=== PATIENT | male | born 1935 | race Caucasian/White ===

== ENCOUNTER 2018-05-29 18:49 | Inpatient (IN) | payer SELFPAY ==
[~2018-05-29] VITALS: Ht 167.6 cm; Wt 76.7 kg
[2018-05-29 20:00] VITALS: BP 133/71
--- NOTE | 2018-05-29 20:00 | NUR ---
RECEIVE PT IN BED A&O X 2, RE ADMIITNG PT TO MED SURG. RESPIRATIONS EVEN AND UNLABORED. TOLERATING ROOM AIR 99%. STABLE CONDITION. NO DT'S. HEAD TO TOE ASSESSMENT IS DONE SKIN IS INTACT. KEPT CLEAN AND DRY AND COMFORTABLE. WILL CONTINUE TO MONITOR CHANGES
--- NOTE | 2018-05-29 21:45 | NUR ---
PAGED AND SPOKE TO DR. SAMUEL MONTAÑO RELAYED PT GIVING FALSE INFORMATION GIVING INCORRECT NAME AND . ADMITTING ORDERS FROM OLD ACCOUNT CANNOT BE RETRIEVED ELECTRONICALLY CONTACTED ER ADMITTING, STATED THEIR BIOFUELS RESEARCH SCIENTIST MADE AWARE OF THE INCIDENT, AND WILL PROCESS BY FRIDAY. PER DR. BAKER ORDERED MANUALLY ENTER HIS OLD ORDERS TO THE NEW ACCOUNT, INCLUDING MEDICATIONS.
[2018-05-29] MEDS ORDERED: MAGNESIUM HYDROXIDE 30 ML UDC PO PRN (23:00)
[2018-05-29] MEDS ORDERED: ZOLPIDEM TARTRATE 5 MG TABLET PO PRN (23:00)
[2018-05-29] MEDS ORDERED: ACETAMINOPHEN 325 MG TABLET PO PRN (23:00)
[2018-05-29] MEDS ORDERED: HYDROCODONE/APAP 5/325MG 1 EACH TABLET PO PRN (23:00)
[2018-05-29] MEDS ORDERED: Z GUARD REMEDY 4 OZ OINT TP PRN (23:00)
[2018-05-29] MEDS ORDERED: MAG HYDROX/AL HYDROX/SIMETH 30 ML UDC PO PRN (23:00)
[2018-05-29] MEDS ORDERED: ONDANSETRON HCL/PF 4 MG/2 ML VIAL IV PRN (23:00)
[2018-05-30] MEDS ORDERED: LEVOFLOXACIN 750 MG /D5W 150ML 750 MG in PREMIX 1 EA IV ONE (03:00)
[2018-05-30] MEDS ORDERED: LEVOFLOXACIN 750 MG /D5W 150ML 150 ML IV ONE (03:24)
--- NOTE | 2018-05-30 06:13 | NUR ---
RN CLOSING NOTE PT IN BED ASLEEP AND EASILY AWAKEN. TOLERATING ROOM AIR NOW AT 95%. AM CARE PROVIDED. STABLE CONDITION AND NOT IN DISTRESS. RESPIRATIONS EVEN AND UNLABORED. NURSING CARE RENDERED. ALL PT NEEDS ANTICIPATED AND MET. SAFETY MEASURES IN PLACE, KEPT CLEAN AND DRY AND COMFORT, CALL LIGHT WITHIN REACH. WILL ENDORSE TO HAM CLERK FOR DARON
[2018-05-30 07:21] LABS: CALCIUM, SERUM 7.9 mg/dL (8.5-10.1); CARBON DIOXIDE 28 mmol/L (21-32); CHLORIDE 103 mmol/L (98-107); CREATININE 0.5 mg/dL (0.6-1.3); GLUCOSE 99 mg/dL (74-106); MAGNESIUM 1.6 mg/dL (1.8-2.4); PHOSPHORUS 7.9 mg/dL (2.5-4.9); POTASSIUM 3.5 mmol/L (3.5-5.1); SODIUM SERUM 138 mmol/L (136-145); UREA NITROGEN, BLOOD 12 mg/dL (7-18)
--- NOTE | 2018-05-30 07:22 | NUR ---
MS RN OPENING NOTES RECEIVED PT AWAKE, CALMED AND RESTING IN BED. A/O X2. TURKISH SPEAKING, DENIES ANY PAIN OR DISCOMFORTS AT THIS TIME. ON ROOM AIR, BREATHING EVEN AND UNLABORED. IV ACCESS ON LAC INTACT AND PATENT, FLUSHES WELL. SAFETY MEASURES IN PLACE, BED IN LOW LOCKED POSITION WITH SR UP X2. CALL LIGHT IN REACH. WILL CONTINUE TO MONITOR PT ACCORDINGLY.
[2018-05-30 07:23] LABS: BASOPHILS % (AUTO) 1.1 % (0.0-2.0); EOSINOPHILS % (AUTO) 6.3 % (0.0-6.0); HEMATOCRIT 28 % (39-51); HEMOGLOBIN 8.4 g/dL (13.5-17.5); LYMPHOCYTES # (AUTO) 0.8 /CMM (0.8-4.8); LYMPHOCYTES % (AUTO) 26.6 % (20.0-44.0); MEAN CORPUSCULAR HGB CONC 30 g/dl (31.0-36.0); MEAN CORPUSCULAR VOLUME 65 fL (80-96); MONOCYTES # (AUTO) 0.4 /CMM (0.1-1.30); MONOCYTES % (AUTO) 12.8 % (2.0-12.0); NEUTROPHILS # (AUTO) 1.6 /CMM (1.8-8.9); NEUTROPHILS % (AUTO) 53.2 % (43.0-81.0); PLATELET COUNT (AUTO) 171 /CMM (150-450); RED BLOOD CELL COUNT(AUTO) 4.29 MIL/uL (4.5-6.0)
[2018-05-30 07:29] LABS: CHOLESTEROL 119 mg/dL (<200); HDL CHOLESTEROL 45 mg/dL (40-60); LDL 71 mg/dL (0-99); THYROID STIMULATING HORMONE 5.557 uIU/mL (0.358-3.74); TRIGLYCERIDES 28 mg/dL (30-150)
[2018-05-30] MEDS ORDERED: PANTOPRAZOLE 40 MG TABLET.DR PO SCH (07:30)
[2018-05-30 08:00] VITALS: BP 154/80
[2018-05-30] MEDS ORDERED: THIAMINE HCL 100 MG TABLET PO SCH (09:00)
[2018-05-30] MEDS ORDERED: FOLIC ACID 1 MG TABLET PO SCH (09:00)
[2018-05-30] MEDS: Magnesium 1GM/D5W 100ML PREMIX 100 ML IV SCH ×2 (10:24→11:32)
--- NOTE | 2018-05-30 10:54 | NUR ---
RN NOTES PATIENT SEEN AND EVALUATED BY DR HERNANDEZ AND STATED THAT IT'S OK IF PT DOESN'T WANT TO HAVE THE IVF BECAUSE PT IS DRINKING WELL. WILL CONTINUE TO MONITOR Addendum: 05/30/18 at 1227 by STEPHANIE CURRY RN CORRECTION: WRONG PROGRESS NOTES. nOTES IS FOR ANOTHER PT.
--- NOTE | 2018-05-30 12:26 | NUR ---
RN NOTES PT NOTED TODAY WITH LOW MG 1.6, REPLACED WITH 2GMS IV. WILL CONTINUE TO MONITOR
--- NOTE | 2018-05-30 15:34 | NUR ---
RN NOTES PATIENT SEEN AND EVALUATED BY DIABETES EDUCATION COORDINATOR SHRUTI SIMMONS WITH ORDER TO DISCHARGE PT HOME TODAY. CALLED PT'S DAUGHTER HAYLEE GOMEZ AND SAID THAT SHE WILL COME @ 1800 TO TAKE PT'S HOME.
[2018-05-30 16:00] VITALS: BP 149/86
--- NOTE | 2018-05-30 18:34 | NUR ---
RN NOTES PT'S DAUGHTER LETICIA GOMEZ CAME AND STATED THAT SHE COULDN'T TAKE PT HOME AND ASKED FOR PT SNF PLACEMEN. KENN BYRD CALLED AND CAME TO UNIT, SPOKE TO PT AND PT'S DAUGHTER REGARDING INSURANCE AND PLACEMENTS POLICIES. DAUGHTER AT THE END DECIDED TO TAKE PT HOME.
--- NOTE | 2018-05-30 18:38 | NUR ---
NEONATAL INTENSIVE CARE UNIT NURSE NOTES PATIENT DISCHARGED HOME IN STABLE CONDITION. A/O X3. CYMRO SPEAKING AND COMPLIANT WITH CARE. V/S TAKEN AND RECORDED. SKIN IS INTACT. IV ACCESS ON LAC REMOVED WITH NO BLEEDING NOTED. BELONGINGS CHECKED, COUNTED AND SIGNED FORM. HEALTH TEACHINGS GIVEN TO PT AND PT'S DAUGHTER VIA CYMRO PREVENTION RN, BOTH VERBALIZED UNDERSTANDING. PRESCRIPTION HANDED TO DAUGHTER LETICIA GOMEZ. PT LEFT UNIT AT 1830 VIA WHEELCHAIR IN NO ACUTE SIGNS OF DISTRESS ACCOMPANIED BY DAUGHTER LETICIA. CHARGE NURSE AWARE OF PT'S DISCHARGE..
[2018-05-31] MEDS ORDERED: LEVOFLOXACIN 750 MG /D5W 150ML 750 MG in PREMIX 1 EA IV SCH (04:00)
== END 2018-05-30 18:23 | disposition home or self-care (01) | DRG 178 ==
LOC: MED 18:49
PROVIDERS: ADMIT Nurse Practitioner Acute Care; ATTEND Nurse Practitioner Acute Care
DX: J69.0 Pneumonitis due to inhalation of food and vomit (principal); E46 Unspecified protein-calorie malnutrition; D50.9 Iron deficiency anemia, unspecified; D72.819 Decreased white blood cell count, unspecified; E66.9 Obesity, unspecified; E83.51 Hypocalcemia; E87.6 Hypokalemia; M19.90 Unspecified osteoarthritis, unspecified site; Z91.81 History of falling; F10.129 Alcohol abuse with intoxication, unspecified; Y90.8 Blood alcohol level of 240 mg/100 ml or more; M17.0 Bilateral primary osteoarthritis of knee; Z68.27 Body mass index [BMI] 27.0-27.9, adult; Z59.0 Homelessness
CPT/HCPCS: 36415; 70450-TC; 71045-TC; 72125-TC; 73564-TC; 80048-TC; 80061-TC; 80076-TC; 80305; 81000-TC; 83735-TC; 83880; 84100-TC; 84443-TC; 84484-TC; 85025-TC; 85610-TC; 87040-TC; 87081-TC; 87400; 95819-TC; A4216; G0378; G0480; J0456; J0696; J1956; J3475; J7042; J7060

== ENCOUNTER 2018-10-26 20:22 | Inpatient (IN) | payer SELFPAY ==
[~2018-10-26] VITALS: Ht 165.1 cm; Wt 79.8 kg
--- NOTE | 2018-10-26 20:44 | NUR ---
BIBRA[address] FROM [address] RECENTLY SEEN AND DISCHARGED FROM [facility] FOR ETOH BS 90. REC'D 200ML NS EN ROUTE. LIMITED RESPONSE FROM PT, ONLY GIVING YES/NO GESTURES. NO ACUTE DISTRESS NOTED. READY FOR EVAL AND WILL CONT TO OBSERVE
[2018-10-26 20:48] LABS: BASOPHILS % (AUTO) 0.5 % (0.0-2.0); EOSINOPHILS % (AUTO) 0.8 % (0.0-6.0); HEMATOCRIT 39 % (39-51); LYMPHOCYTES # (AUTO) 0.8 /CMM (0.8-4.8); LYMPHOCYTES % (AUTO) 9.3 % (20.0-44.0); MEAN CORPUSCULAR HGB CONC 33 g/dl (31.0-36.0); MEAN CORPUSCULAR VOLUME 82 fL (80-96); MONOCYTES # (AUTO) 0.3 /CMM (0.1-1.30); MONOCYTES % (AUTO) 3.3 % (2.0-12.0); NEUTROPHILS # (AUTO) 7.2 /CMM (1.8-8.9); NEUTROPHILS % (AUTO) 86.1 % (43.0-81.0); PLATELET COUNT (AUTO) 228 /CMM (150-450); RED BLOOD CELL COUNT(AUTO) 4.77 MIL/uL (4.5-6.0); WHITE BLOOD COUNT (AUTO) 8.4 K/uL (4.3-11.0)
[2018-10-26 21:13] LABS: ALANINE AMINOTRANSFERASE 19 U/L (12-78); ALBUMIN 3.8 g/dL (3.4-5.0); ALCOHOL, BLOOD 143 mg/dL (0-0); ALKALINE PHOSPHATASE 92 U/L (46-116); ASPARTATE AMINOTRANSFERASE 32 U/L (15-37); BILIRUBIN,DIRECT 0.2 mg/dL (0.0-0.2); BILIRUBIN,TOTAL 0.6 mg/dL (0.2-1.0); CALCIUM, SERUM 8.2 mg/dL (8.5-10.1); CARBON DIOXIDE 19 mmol/L (21-32); CHLORIDE 108 mmol/L (98-107); CREATININE 0.7 mg/dL (0.6-1.3); GLUCOSE 112 mg/dL (74-106); SODIUM SERUM 147 mmol/L (136-145); TOTAL PROTEIN, SERUM 8.1 g/dL (6.4-8.2); UREA NITROGEN, BLOOD 20 mg/dL (7-18)
[2018-10-26 21:17] LABS: ACETAMINOPHEN < 10 ug/ml (10-30); POTASSIUM 2.8 mmol/L (3.5-5.1); SALICYLATE 1.2 mg/dL (2.8-20.0)
[2018-10-26] MEDS ORDERED: POTASSIUM CL. PREMIX PERIPHER. 100 ML ONE (21:55)
[2018-10-26] MEDS: POTASSIUM CL. PREMIX PERIPHER. 50 ML IV SCH ×2 (22:30→23:25)
--- NOTE | 2018-10-26 22:40 | NUR ---
Patient is resting comfortably in bed with eyes closed. Easily aroused. VSS. REQUESTING WATER. NOTIFIED
--- NOTE | 2018-10-26 23:32 | NUR ---
2ND BAG POTASSIUM INFUSING. PT ELICEO WELL.
--- NOTE | 2018-10-27 00:20 | NUR ---
Pt continues to sleep w/ resp even & unlabored, IV potassium continues to be infusing w/ no infiltration, phlebitis at IV insertion site noted. pt on continuous pulse-ox w/ cardiac monitoring.
[2018-10-27] MEDS ORDERED: POTASSIUM CL. PREMIX PERIPHER. 50 ML ONE ×2 (00:38→03:31)
--- NOTE | 2018-10-27 03:21 | NUR ---
Pt awake, requesting water, given flds, sitting up in bed drinking w/ no aspiration of flds noted. pt then goes back to sleep, on continuous pulse-ox w/ cardiac monitoring.
[2018-10-27] MEDS ORDERED: POTASSIUM CHLORIDE 10 MEQ/50 ML PREMIXED IVPB FOR PERIPHERAL LINE IV ONE (03:30)
[2018-10-27] MEDS ORDERED: ONDANSETRON HCL/PF 4 MG/2 ML VIAL ONE (03:30)
[2018-10-27] MEDS ORDERED: IV NS 0.9% 1,000 ML BAG IV ONE (03:30)
[2018-10-27] MEDS ORDERED: ONDANSETRON HCL/PF - ER 4 MG/2 ML VIAL IV ONE (03:30)
[2018-10-27] MEDS ORDERED: Magnesium 1GM/D5W 100ML PREMIX 200 ML IV ONE (03:31)
--- NOTE | 2018-10-27 03:40 | NUR ---
pt actively vomiting coffee ground emesis w/ no aspiration of gastric content noted. Dr. Robbins notified.
--- NOTE | 2018-10-27 03:46 | NUR ---
pt medicated as ordered for N/V, w/ IVPB Mg, labs drawn & sent. Urinal provided, urine obtained & sent to lab. pt on continuous O2 w/ cardiac monitoring.
[2018-10-27 03:57] LABS: APPEARANCE,URINE CLEAR (CLEAR); BILIRUBIN,URINE NEGATIVE (NEGATIVE); BLOOD, URINE 1+ Ery/uL (NEGATIVE); COLOR,URINE YELLOW (YELLOW); KETONES,URINE 1+ (NEGATIVE); LEUKOCYTE ESTERASE ,URINE NEGATIVE (NEGATIVE); NITRITE, URINE NEGATIVE (NEGATIVE); PH,URINE 5.5 (5.0-8.0); PROTEIN,URINE 1+ mg/dl (NEGATIVE); UGLUCOSE NEGATIVE (NEGATIVE)
[2018-10-27] MEDS: Magnesium 1GM/D5W 100ML PREMIX 100 ML IV SCH ×2 (03:58→04:15)
[2018-10-27 04:12] LABS: BACTERIA,URINE Rare /HPF (None Seen); SQUAMOUS EPITHELIAL CELL,UR Rare /HPF (None Seen); WBC,URINE 0-2 /HPF (0-3)
[2018-10-27] MEDS ORDERED: CEFTRIAXONE 1GM BAG (ER ONLY) 50 ML IV ONE (04:14)
[2018-10-27] MEDS ORDERED: POTASSIUM CL. PREMIX PERIPHER. 100 ML ONE (04:15)
[2018-10-27] MEDS ORDERED: PANTOPRAZOLE 40 MG VIAL ONE (04:15)
[2018-10-27] MEDS ORDERED: OCTREOTIDE 1,250 MCG in IV NS 0.9% 250 ML IV ONE (04:30)
[2018-10-27] MEDS ORDERED: PANTOPRAZOLE 80 MG in IV NS 0.9% 100 ML IV ONE (04:30)
[2018-10-27] MEDS ORDERED: CEFTRIAXONE 1GM BAG (ER ONLY) 1 GM/50 ML PIGGYBACK IV ONE (04:30)
[2018-10-27] MEDS ORDERED: OCTREOTIDE 50 MCG/ML AMPUL IV ONE (04:30)
[2018-10-27 04:37] LABS: BASOPHILS % (AUTO) 0.4 % (0.0-2.0); LYMPHOCYTES # (AUTO) 0.9 /CMM (0.8-4.8); PLATELET COUNT (AUTO) 212 /CMM (150-450)
[2018-10-27 04:40] LABS: EOSINOPHILS % (AUTO) 0.2 % (0.0-6.0); HEMATOCRIT 39 % (39-51); HEMOGLOBIN 12.9 g/dL (13.5-17.5); LYMPHOCYTES % (AUTO) 12.6 % (20.0-44.0); MEAN CORPUSCULAR HGB CONC 34 g/dl (31.0-36.0); MEAN CORPUSCULAR VOLUME 82 fL (80-96); MONOCYTES # (AUTO) 0.4 /CMM (0.1-1.30); MONOCYTES % (AUTO) 4.8 % (2.0-12.0); RED BLOOD CELL COUNT(AUTO) 4.67 MIL/uL (4.5-6.0); WHITE BLOOD COUNT (AUTO) 7.4 K/uL (4.3-11.0)
[2018-10-27] MEDS ORDERED: OCTREOTIDE 100 MCG/ML VIAL ONE (04:56)
[2018-10-27] MEDS ORDERED: OCTREOTIDE 500 MCG/ML VIAL ONE (04:56)
--- NOTE | 2018-10-27 05:21 | NUR ---
Report given to SARAH Layton for pt admission to [facility] 307-2 for DARON. pt lying on rt side, w/ resp even & unlabored, on continuous monitoring.
[2018-10-27] MEDS ORDERED: PHARMACY ADD 1 AMP MVI TO IVF DAILY ONE BAG XX PRN (05:30)
[2018-10-27] MEDS ORDERED: MAGNESIUM HYDROXIDE 30 ML UDC PO PRN (05:30)
[2018-10-27] MEDS ORDERED: MAG HYDROX/AL HYDROX/SIMETH 30 ML UDC PO PRN (05:30)
[2018-10-27] MEDS ORDERED: Z GUARD REMEDY 2 OZ OINT TP PRN (05:30)
[2018-10-27] MEDS ORDERED: HYDROCODONE/APAP 5/325MG 1 EACH TABLET PO PRN (05:30)
[2018-10-27] MEDS ORDERED: LORAZEPAM INJ 2 MG/ML VIAL IV PRN (05:30)
[2018-10-27] MEDS ORDERED: ACETAMINOPHEN 325 MG TABLET PO PRN (05:30)
[2018-10-27] MEDS ORDERED: IV NS 0.9% 1,000 ML IV SCH (05:30)
[2018-10-27] MEDS ORDERED: ONDANSETRON HCL/PF 4 MG/2 ML VIAL IVP PRN (05:30)
[2018-10-27] MEDS ORDERED: ZOLPIDEM TARTRATE 5 MG TABLET PO PRN (05:30)
--- NOTE | 2018-10-27 05:31 | NUR ---
ADMISSION NOTES: RECEIVED REPORT FROM LADLE PATCHER, PT BROUGHT TO THE UNIT VIA KARO, A/O X4, ON 3L OXYGEN VIA NC RESPIRATION EVEN AND UNLABORED. IV ACCESS PATENT AND FLUSHING WELL, INFUSING WITH SANDOSTATIN CONTINUOUS BOLUS AT 10ML/HR. ORIENTED PT TO UNIT POLICY AND HOURLY ROUNDING, USE OF CALL LIGHT. SKIN ASSESSMENT PERFORMED. INVENTORY OF BELONGING COMPLETED BY DAVID FARAH. VS TAKEN AND RECORDED. TELE MONITORING PLACED SINUS RHYTHM HR 84. SAFETY PRECAUTIONS FOR FALL INITIATED, CALL LIGHT IN REACH, WILL CONTINUE MONITORING PT.
--- NOTE | 2018-10-27 05:50 | NUR ---
RN NOTES: PER ER REPORT PT WAS GIVEN 2 BAGS OF MAGNESIUM IN ER, SHE CLAIMED THEY DON NOT SCAN MEDS IN ER, BUT 2 BAGS WERE GIVEN
--- NOTE | 2018-10-27 05:55 | NUR ---
RN NOTES: IV ACCESS FROM ER GOT PULLED OUT BY PT ACCIDENTALLY, RESTARTED NEW IV ACCESS ON RIGHT HAND G 22, AND LEFT HAND G 20 BOTH WITH GOOD BLOOD RETURN, COVERED WITH TEGADERM, PROPER LABELS ATTACHED,
[2018-10-27 06:00] VITALS: BP 172/99
[2018-10-27] MEDS ORDERED: Folic acid 1 MG in IV D5W 50 ML IV ONE (06:00)
[2018-10-27] MEDS ORDERED: Thiamine 100 MG in IV D5W 50 ML IV ONE (06:00)
--- NOTE | 2018-10-27 06:00 | NUR ---
RN NOTES: ADMINISTERED 2ND BAG OF KCL REPLACEMENT 50ML/HR
--- NOTE | 2018-10-27 06:05 | NUR ---
RN NOTES: UNABLE TO ADMINISTER SCHEDULED MEDS FOR 0600 SUCH THIAMINE AND FOLIC ACID IV BECAUSE RIGHT IV ACCESS PT IS RECEIVING SANDOSTATIN IV 10ML/HR (50MCG), AND LEFT HAND IV ACCESS PATIENT IS RECEIVING KCL REPLACEMENT, INFORMED PROCESS IMPROVEMENT SPECIALISTCARI HOOPER, RESTARTED NEW IV ACCESS ON LEFT WRIST FOR IV NS FLUID ORDER
--- NOTE | 2018-10-27 07:06 | NUR ---
RN NOTES: ADMINISTERED 3RD BAG OF KCL REPLACEMENT AT 50ML/HR
--- NOTE | 2018-10-27 07:21 | NUR ---
RN NOTES: SPOKED WITH PHARMACIST STATED PUT NON ADMIN FOR FOLIC ACID AND THIAMINE SHE WILL RESCHED BOTH MEDS FOR 0900AM
--- NOTE | 2018-10-27 07:22 | NUR ---
RN CLOSING NOTES: PT REMAINS A/O X3 ON 3L OXYGEN VIA NC, DENIES ANY PAIN OR DISCOMFORT AT THIS TIME. IV ACCESS REMAINS PATENT AND FLUSHING WELL, INFUSING WITH SANDOSTATIN CONTINUOUS AT 10ML/HR (50 MCG), AND THE OTHER IV ACCESS WITH ONGOING KCL REPLACEMENT. VS REMAINS STABLE, NEEDS ATTENDED. SAFETY PRECAUTIONS FOR FALL INITIATED, CALL LIGHT IN REACH, WILL ENDORSE TO DAY RN FOR CONTINUITY OF CARE.
--- NOTE | 2018-10-27 07:30 | NUR ---
SNOW REMOVAL SUPERVISOR INITIAL NOTES RECEIVED PT IN BED, ASLEEP BUT EASILY AROUSABLE. ON TELE PT IS SR. L HAND #20, L WRIST #18, R HAND #22 C/D/P/I. BED IN LOCKED/LOWEST POSITION. CALL LIGHT IN REACH. WILL CONT TO MONITOR.
--- NOTE | 2018-10-27 07:54 | NUR ---
HAND UMBRELLA TIPPER NOTES LAB CALLED RE: DOUBLE ORDER FOR CBC, BMP IN AM. WILL CHECK WITH HOSPITALIST TODAY. INSTRUCTED TRAVEL OCCUPATIONAL THERAPIST TO CANCEL FOR NOW.
[2018-10-27 08:00] VITALS: BP 139/87
[2018-10-27 08:37] LABS: CARBON DIOXIDE 20 mmol/L (21-32); CHLORIDE 108 mmol/L (98-107); CREATININE 0.6 mg/dL (0.6-1.3); GLUCOSE 84 mg/dL (74-106); PHOSPHORUS 4.4 mg/dL (2.5-4.9); POTASSIUM 3.3 mmol/L (3.5-5.1); SODIUM SERUM 147 mmol/L (136-145); UREA NITROGEN, BLOOD 20 mg/dL (7-18)
[2018-10-27 08:48] LABS: CHOLESTEROL 207 mg/dL (<200); HDL CHOLESTEROL 54 mg/dL (40-60); LDL 146 mg/dL (0-99); TRIGLYCERIDES 71 mg/dL (30-150)
[2018-10-27] MEDS ORDERED: Folic acid 1 MG in IV D5W 50 ML IV SCH (09:00)
[2018-10-27] MEDS ORDERED: Thiamine 100 MG in IV D5W 50 ML IV SCH (09:00)
[2018-10-27] MEDS ORDERED: IV NS 0.9% 1,000 ML IV PRN (09:35)
[2018-10-27] MEDS: METOPROLOL TARTRATE 50 MG TABLET PO SCH ×2 (11:13→17:16)
[2018-10-27] MEDS: POTASSIUM CHLORIDE 20 MEQ TAB.PRT.SR PO SCH ×3 (11:13→12:58)
[2018-10-27 12:00] VITALS: BP 121/71
--- NOTE | 2018-10-27 14:00 | NUR ---
PROCESSING ASSISTANT NOTES FOUND PT SITTING ON SIDE OF BED, L HAND IV PULLED OUT. BLOOD ON FLOOR AND ON SHEETS. PT WAS EATING AND DID NOT CALL FOR ASSISTANCE. APPLIED PRESSURE ON IV SITE AND APPLIED BAND AID. WILL CONT TO MONITOR
--- NOTE | 2018-10-27 15:32 | NUR ---
Social service consult requested by Dr. Chaudhary for possible homelessness. Pt. is a 83 year old male who was admitted to [facility] for GI Bleed. SW met with pt. bedside. Pt. is Namibian speaking. department secretary Anna assisted SW in translation. Pt. is alert and oriented x 3. Pt. appeared disheveled. Pt. states he lives with his and daughter at [address] [place] [address], [address] in [facility]. Pt. is wheelchair bound for the last 36 years. Pt's emergency contact is Amanda . The contact number on face sheet is incorrect. Pt. states he only drinks beer on Saturdays. Pt. to be discharged back home once medically cleared. OLLIE contacted pt's daughter Amanda to confirm if pt's resides with her. Amanda confirmed that pt. can return back home and informed SW that pt. is an alcoholic and is minimizing how much he drinks. OLLIE updated pt's bilingual case manager Ramila Escobar with aforementioned information. No other social service needs are required at this time.
[2018-10-27 16:00] VITALS: BP 166/77
[2018-10-27] MEDS: AMLODIPINE BESYLATE 10 MG TABLET PO SCH (17:59)
--- NOTE | 2018-10-27 18:29 | NUR ---
ELECTROPHONIC ENGINEER END OF SHIFT NOTES PT STABLE IN BED. NO C/O PAIN. NO S/SX OF RESP DISTRESS. WILL ENDORSE TO PM NURSE FOR DARON.
--- NOTE | 2018-10-27 19:35 | NUR ---
RN INITIAL NOTES: RECEIVED REPORT FROM DIEGO SMITH. PT SLEEPING, RESPONDS TO TACTILE STIMULI, PT A/O X3 LITHUANIAN SPEAKING ONLY ABLE TO MAKE NEEDS KNOWN, URINAL AT BED SIDE, PT DENIES ANY PAIN OR DISCOMFORT AT THIS TIME. TELE MONITORING SINUS IRENE HR 51, PER REPORT THIS AM PT WENT TO [place] TO A FLUTTER, TENTS ASSEMBLER MADE AWARE. IV ACCESS PATENT AND FLUSHING WELL, RIGHT WRIST IV ACCESS INFUSING WITH SANDOSTATIN 50MCG AT 10ML/HR, ANOTHER IV ACCESS INFUSING WITH NS AT 100ML/HR. SAFETY PRECAUTIONS FOR FALL INITIATED, CALL LIGHT IN REACH, WILL MONITOR PT FOR ANY S/S OF ALCOHOL WITHDRAWAL.
--- NOTE | 2018-10-27 19:45 | NUR ---
RN NOTES: PER DR ROMERO TO DEYSI SIBLEY
[2018-10-27] MEDS: PANTOPRAZOLE 40 MG TABLET.DR PO SCH ×2 (19:52→21:00)
[2018-10-27 20:00] VITALS: BP 134/70
[2018-10-27] MEDS: IV NS 0.9% 1,000 ML IV PRN (20:09)
--- NOTE | 2018-10-27 20:49 | NUR ---
RN NOTES: PT REQUESTED FOR APPLE JUICE , CONSUMED 100%
--- NOTE | 2018-10-27 21:06 | NUR ---
RN NOTES: RECEIVED CALL FROM ATEME THAT PT'S HR NNOW 130, RN/I PERSONALLY SITTING OUTSIDE PT'S ROOM TO MONTIOR PT FOR ANY S/S OF ALCOHOL WITHDRAWAL AND HE'S FALL RISK, ASSESSED PT, PER PT DENIES ANY HEAD ACHE DIZZINESS OR LIGHT HEADEDNESS, DENIES ANY PAIN OR DISCOMFORT, ALL COMMUNICATION TRANSLATED IN [place]
--- NOTE | 2018-10-27 21:19 | NUR ---
NON ADMIN OF PROTONIX SCHED FOR 2100: PT JUST RECEIVED PROTONIX AT 195110/27/18
--- NOTE | 2018-10-27 22:06 | NUR ---
RN NOTES: SINUS IRENE WITH PAC HR 55-62
--- NOTE | 2018-10-27 22:30 | NUR ---
RN NOTES: NOTIFIED DIRECTOR OF PHYSICIAN PRACTICES MD REGARDING HEART RHYTHM OF PT SINUS IRENE 50-60'S NO NEW ORDERS FROM MD, WILL CONTINUE MONITORING. PT ON IVF 125ML/HR, DENIES ANY PAIN OR DISCOMFORT, DENIES ANY DIZZINESS OR LIGHT HEADEDNESS, ASYMPTOMATIC
[2018-10-28] VITALS (7 sets, daily range): BP systolic 120–135; BP diastolic 57–72
--- NOTE | 2018-10-28 00:20 | NUR ---
NON ADMIN LOPRESSOR: PT'S HR 45
[2018-10-28] MEDS: IV NS 0.9% 1,000 ML IV PRN (04:06)
[2018-10-28] MEDS: METOPROLOL TARTRATE 50 MG TABLET PO SCH ×4 (05:57→17:48)
--- NOTE | 2018-10-28 05:58 | NUR ---
NON ADMIN OF LOPRESSOR: PT'S HR 49, SINUS IRENE HR RANGING 45-49, LOWEST 43, LOPRESSOR NOT ADMINISTER AT THIS TIME, PER PARAMETER TO HOLD IF HR <50
[2018-10-28 06:21] LABS: BASOPHILS % (AUTO) 0.3 % (0.0-2.0); HEMATOCRIT 35 % (39-51); HEMOGLOBIN 11.9 g/dL (13.5-17.5); LYMPHOCYTES # (AUTO) 0.9 /CMM (0.8-4.8); LYMPHOCYTES % (AUTO) 17.9 % (20.0-44.0); MEAN CORPUSCULAR HGB CONC 34 g/dl (31.0-36.0); MEAN CORPUSCULAR VOLUME 82 fL (80-96); MONOCYTES # (AUTO) 0.3 /CMM (0.1-1.30); MONOCYTES % (AUTO) 6.6 % (2.0-12.0); NEUTROPHILS # (AUTO) 3.6 /CMM (1.8-8.9); NEUTROPHILS % (AUTO) 71.2 % (43.0-81.0); PLATELET COUNT (AUTO) 159 /CMM (150-450); RED BLOOD CELL COUNT(AUTO) 4.31 MIL/uL (4.5-6.0); WHITE BLOOD COUNT (AUTO) 5.1 K/uL (4.3-11.0)
--- NOTE | 2018-10-28 06:33 | NUR ---
RN CLOSING NOTES: PT IN BED, REMAINS ON RA RESPIRATION EVEN AND UNLABORED. ON SINUS IRENE HR 52, LOWEST 40. IV ACCESS REMAINS PATENT AND FLUSHING WELL, INFUSING WITH NS AT 100ML/HR. NO EPISODE OF VOMITING NOTED THROUGHOUT THE SHIFT. VS REMAINS STABLE, NEEDS ATTENDED. URINAL AT BED SIDE. FOR DC IN AM WITH DAUGHTER, EXIT CARE FILLED OUT, FOR DAY RN TO COMPLETE DATA FOR V, RX, AND OTHER FOLLOW UP, PRIOR TO PT'S DC. SAFETY PRECAUTIONS FOR FALL REMAINS ENGAGED, CALL LIGHT IN REACH, WILL ENDORSE TO DAY RN FOR CONTINUITY OF CARE.
[2018-10-28 06:34] LABS: ALANINE AMINOTRANSFERASE 18 U/L (12-78); ALBUMIN 3.1 g/dL (3.4-5.0); ALKALINE PHOSPHATASE 76 U/L (46-116); ASPARTATE AMINOTRANSFERASE 22 U/L (15-37); BILIRUBIN,TOTAL 1.3 mg/dL (0.2-1.0); CALCIUM, SERUM 8.2 mg/dL (8.5-10.1); CARBON DIOXIDE 29 mmol/L (21-32); CHLORIDE 104 mmol/L (98-107); CREATININE 0.5 mg/dL (0.6-1.3); GLUCOSE 112 mg/dL (74-106); PHOSPHORUS 2.3 mg/dL (2.5-4.9); POTASSIUM 4.4 mmol/L (3.5-5.1); SODIUM SERUM 139 mmol/L (136-145); TOTAL PROTEIN, SERUM 6.7 g/dL (6.4-8.2); UREA NITROGEN, BLOOD 10 mg/dL (7-18)
--- NOTE | 2018-10-28 07:40 | NUR ---
ms rn receive don bed, awake,alert,oriented x3, w/ period s of confusion, not in any form of distress. respirations even and unlabored,no sob noted.denies pain at this time, will monitor patient.
[2018-10-28] MEDS: THIAMINE HCL 100 MG TABLET PO SCH (09:19)
[2018-10-28] MEDS: PANTOPRAZOLE 40 MG TABLET.DR PO SCH ×2 (09:19→21:12)
[2018-10-28] MEDS: FOLIC ACID 1 MG TABLET PO SCH (09:20)
[2018-10-28] MEDS: AMLODIPINE BESYLATE 10 MG TABLET PO SCH (09:24)
--- NOTE | 2018-10-28 09:30 | NUR ---
ms puentes breakfast served,due meds given,tolerated well.
--- NOTE | 2018-10-28 12:00 | NUR ---
MS RN WAS SEEN BY YG Forde/ ORDER TO BE DISCHARGE TODAY.
[2018-10-28] MEDS ORDERED: Thiamine HCL PO (12:33)
[2018-10-28] MEDS ORDERED: AMLO10TA7 PO (12:33)
[2018-10-28] MEDS ORDERED: PANT40TA2 PO (12:33)
[2018-10-28] MEDS ORDERED: FOLI1TAB16 PO (12:33)
[2018-10-28] MEDS ORDERED: METO50TA16 PO (12:33)
[2018-10-28] MEDS ORDERED: NEUTRA PHOS 1 POWD.PACKET NG ONE (13:00)
--- NOTE | 2018-10-28 14:00 | NUR ---
MS RN CALLED DAUGHTER, WILL COME TO PICK HIM UP AT 6PM.
--- NOTE | 2018-10-28 19:18 | NUR ---
MS RN ON BED, NO DISTRESS NOTED,ALL NEEDS ATTENDED.
--- NOTE | 2018-10-28 19:40 | NUR ---
RN OPENING NOTES RECEIVED REPORT FROM DAYSHIFT SARAH MORIN. FOUND Pt AWAKE, RESTING IN BED, WATCHING TV. NO S/S OF ACUTE DISTRESS OR SOB NOTED. PER REPORT Pt IS BEING DISCHARGED TONIGHT, AND OIL WELL LOGGER IS ARRANGED BY DAUGHTER WHO WILL BE HERE TONIGHT TO OIL WELL LOGGER HER FATHER. Pt IS A/OX3, VERBAL, SERBIAN SPEAKING ONLY, WITH PERIODS OF CONFUSION AND FORGETFULNESS. IV ACCESS ON LWRIST #18G, SL & R WRIST #20G, SL. WILL WAIT UNTIL DAUGHTER ARRIVES TO REMOVE Pt's IVs. SAFETY MEASURES IN PLACE. BED LOW, LOCKED, HOB ELEVATED, SIDE RAILS UP, CALL LIGHT AND BEDSIDE TABLE WITHIN REACH. BED ALARM ON. WILL CONTINUE TO MONITOR Pt's CONDITION AND SAFETY UNTIL Pt IS DISCHARGED.
--- NOTE | 2018-10-28 22:30 | NUR ---
RN NOTES INFORMED HOUSEMAID HOSPITALIST COFFIN MAKER NASIMA Forde, THAT Pt's DAUGHTER HAYLEE WAS SUPPOSE TO COME TONIGHT TO SIDE STITCHER Pt FOR DISCHARGE, HOWEVER DAUGHTER HAS NOT YET ARRIVED, AND HAVE ATTEMPTED MULTIPLE TIMES CALLING HER. ALSO LEFT VOICEMAIL IN [place] & [place]. BUT NO ANSWER FROM FAMILY. PER COFFIN MAKER SAID OK TO HOLD D/C FOR TONIGHT, & LET Pt STAY UNTIL TOMORROW MORNING. WILL ENDORSE TO DAYSHIFT RN.
--- NOTE | 2018-10-28 23:42 | NUR ---
RN NOTES WAS ABLE TO GET A HOLD OF Pt's DAUGHTER HAYLEE. SHE SAID SHE WAS UNABLE TO COME GET HIM TONIGHT DUE TO NOT HAVING THE CAR. INFORMED THE DAUGHTER THAT SHE MUST COME PICK HIM UP TOMORROW MORNING BEFORE 10AM. DAUGHTER SAID SHE WILL TRY HER BEST, AND IF SHE CANNOT GET THE CAR BACK IN TIME, THEN SHE WILL HAVE HER MOTHER (Pt's ) TO COME GET HIM VIA TAXI.
--- NOTE | 2018-10-29 06:40 | NUR ---
RN CLOSING NOTES NO SIGNIFICANT CHANGES IN Pt's CONDITION. Pt REMAINS STABLE AT THIS TIME. NO S/S OF ACUTE DISTRESS OR SOB NOTED DURING THE NIGHT. ALL NEEDS MET AND ATTENDED TO. Pt RESTING IN BED, RESPIRATIONS EVEN AND UNLABORED WITH EQUAL CHEST RISE AND FALL. SAFETY MEASURES IN PLACE. WILL ENDORSE TO DAYSHIFT RN FOR Pt's DARON. DISCHARGE IN THE AM TODAY.
--- NOTE | 2018-10-29 07:35 | NUR ---
MS RN RECEIVED ON BED, AWAKE,ALERT,ORIENTED X3,NOT IN ANY FORM OF DISTRESS, RESPIRATIONS EVEN AND UNLABORED,NO SOB NOTED, PATIENT READY TO GO HOME, WAS NOT ABLE TO GO HOME LAST NIGHT DUE TO DAUGHTER HAVE NO CAR.
[2018-10-29 08:00] VITALS: BP 136/77
--- NOTE | 2018-10-29 08:30 | NUR ---
MS SMITH BREAKFAST SERVED,DUE MEDS GIVEN,TOLERATED WELL.
[2018-10-29] MEDS: FOLIC ACID 1 MG TABLET PO SCH (08:37)
[2018-10-29] MEDS: THIAMINE HCL 100 MG TABLET PO SCH (08:37)
[2018-10-29] MEDS: PANTOPRAZOLE 40 MG TABLET.DR PO SCH (08:37)
[2018-10-29] MEDS: METOPROLOL TARTRATE 50 MG TABLET PO SCH (08:37)
[2018-10-29 08:38] VITALS: BP 99/58
[2018-10-29] MEDS: AMLODIPINE BESYLATE 10 MG TABLET PO SCH (08:38)
--- NOTE | 2018-10-29 13:00 | NUR ---
ms rn still waiting for his daughter to pick her up.
--- NOTE | 2018-10-29 15:40 | NUR ---
ms zinc furnace charger instructions given, patient went home via taxi, all needs attended.
== END 2018-10-29 15:10 | disposition home or self-care (01) | DRG 377 ==
LOC: ER 20:24 → TELE 10-27 04:23 → MED 10-28 09:15
PROVIDERS: ADMIT Nurse Practitioner Acute Care; ATTEND Nurse Practitioner Acute Care
DX: K29.21 Alcoholic gastritis with bleeding (principal); N17.0 Acute kidney failure with tubular necrosis; E87.0 Hyperosmolality and hypernatremia; E87.2 Acidosis; I48.92 Unspecified atrial flutter; K76.6 Portal hypertension; Y90.6 Blood alcohol level of 120-199 mg/100 ml; E86.0 Dehydration; E87.6 Hypokalemia; F10.229 Alcohol dependence with intoxication, unspecified; E11.9 Type 2 diabetes mellitus without complications; I10 Essential (primary) hypertension; Z91.14 Patient's other noncompliance with medication regimen
CPT/HCPCS: 36415; 71045-TC; 80048-TC; 80053-TC; 80061-TC; 80076-TC; 80305; 81000-TC; 83690-TC; 83735-TC; 84100-TC; 85025-TC; 86850-TC; 87081-TC; 93307-TC; 94799-TC; A6402; C9113; G0378; G0480; J0696; J2354; J2405; J3411; J3475; J3480; J3490; J7030; J7050; J7060